=== PATIENT | female | born 2005 | race Two or more races ===

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

== ENCOUNTER 2025-01-13 18:56 | Emergency (ER) | payer BC ==
[~2025-01-13] VITALS: Ht 170.2 cm; Wt 100.0 kg
--- NOTE | 2025-01-13 19:22 | ED.PDOC ---
History of Present Illness HPI Comments 19 y/o obese F presents with nonradiating, lower abdominal pain. Patient reports on being 15x weeks , currently. Pain is similar to cramps but has been lasting all day following onset, this morning, and is worse in her LLQ area. She reports also taking Tylenol also, this morning, for a headache, which resolved prior to arrival. Endorses on having associated vaginal discharge as well. Patient informs on having established care, with last ultrasound showing advancing without complications 1.5 weeks ago. No recent travel, injuries, sick contact, spoiled food, or illicit substance use endorsed. She denies having any vaginal bleeding, nausea, vomiting, fever, chills, or further associated symptoms. Time Seen by MD: 19:15 Primary Care Provider: ASLAM Reviewed Notes: Nurses Notes, Medications, Allergies Allergies: Coded Allergies: NO KNOWN ALLERGIES (Unverified , 11/30/13) Home Meds Active Scripts Cefdinir (Cefdinir) 300 Mg Cap, 1 CAP PO BID for 7 Days, #14 CAP Prov:RENAN MONROE MD 01/13/25 Information Source: Patient Mode of Arrival: Ambulatory Severity: Moderate Timing: Hours Duration: Since onset Prehospital treatment: Pain Meds Past Medical History PAST MEDICAL HISTORY: Denies Surgical History: Denies all surgeries CLOTH BURLER History: No Pertinent CLOTH BURLER History Family History Family History: Unknown Social History Smoker: Non-Smoker Alcohol: Denies ETOH Use Drugs: Denies Drug Use Lives In: Home All Other Systems: Reviewed and Negative (Comprehensive systems review obtained and negative except for what is stated in the HPI.) Physical Exam General Appearance: No Apparent Distress, Obese HEENT: Normal ENT Inspection, Pharynx Normal, TMs Normal Neck: Full Range of Motion, Non-Tender, Normal, Normal Inspection Respiratory: Chest Non-Tender, Lungs Clear, No Accessory Muscle Use, No Respiratory Distress, Normal Breath Sounds Cardiovascular: No Edema, No JVD, No Murmur, No Gallop, Normal Peripheral Pulses, Regular Rate/Rhythm Breast Exam: Deferred Gastrointestinal: LLQ (tenderness), No Organomegaly, No Pulsatile Mass, Normal Bowel Sounds, Soft, Tenderness (LLQ) Genitalia: Deferred Pelvic: Deferred Rectal: Deferred Extremities: No calf tenderness, Normal capillary refill, Normal inspection, Normal range of motion, Non-tender, No pedal edema Musculoskeletal : Apperance: Normal Neurologic: Alert, luggage attendant II-XII nml as Tested, No Motor Deficits, Normal Affect, Normal Mood, No Sensory Deficits Cerebellar Function: Normal Reflexes: Normal Skin: Dry, Normal Color, Warm Lymphatic: No Adenopathy Was a procedure done? Was a procedure done?: No Differential Dx Considerations may include: threatened , diverticulitis, PID, UTI, among others X-Ray, Labs, Meds, VS Vital Signs Date Time Temp Pulse Resp B/P (MAP) Pulse Ox O2 Delivery O2 Flow Rate FiO2 01/13/25 20:18 89 18 97 Room Air 01/13/25 20:18 99.0 89 18 115/75 (88) 97 99.0 01/13/25 19:20 99.5 106 20 125/78 (94) 97 99.5 Lab Test 01/13/25 20:20 01/13/25 19:19 Range/Units White Blood Count 10.3 4.4-10.8 10^3/uL Red Blood Count 4.64 4.0-5.20 10^6/uL Hemoglobin 12.8 12.2-16.2 g/dL Hematocrit 38.0 36.0-46.0 % Mean Corpuscular Volume 81.8 80.0-100.0 fL Mean Corpuscular Hemoglobin 27.6 L 28.0-32.0 pg Mean Corpuscular Hemoglobin Concent 33.7 32.0-36.0 g/dL Red Cell Distribution Width 13.4 11.8-14.3 % Platelet Count 285 140-450 10^3/uL Mean Platelet Volume 7.5 6.9-10.8 fL Neutrophils (%) (Auto) 68.7 37.0-80.0 % Lymphocytes (%) (Auto) 21.6 10.0-50.0 % Monocytes (%) (Auto) 7.1 0.0-12.0 % Eosinophils (%) (Auto) 2.1 0.0-7.0 % Basophils (%) (Auto) 0.5 0.0-2.0 % Neutrophils # (Auto) 7.1 1.6-8.6 10 ^3/uL Lymphocytes # (Auto) 2.2 0.4-5.4 10 ^3/uL Monocytes # (Auto) 0.7 0-1.3 10 ^3/uL Eosinophils # (Auto) 0.2 0-0.8 10 ^3/uL Basophils # (Auto) 0 0-0.2 10 ^3/uL Nucleated Red Blood Cells 0.1 % Sodium Level 139 136-145 mmol/L Potassium Level 3.9 3.5-5.1 mmol/L Chloride Level 109 H 98-107 mmol/L Carbon Dioxide Level 22 20-31 mmol/L Anion Gap 8 5-15 Blood Urea Nitrogen 7 L 9-23 mg/dL Creatinine 0.51 L 0.550-1.02 mg/dL Glomerular Filtration Rate Calc 138 >90 mL/min BUN/Creatinine Ratio 13.7 10.0-20.0 Serum Glucose 88 74-106 mg/dL Calcium Level 9.8 8.7-10.4 mg/dL Beta HCG, Quantitative 48043.3 H 1.5-4.2 mIU/mL Urine Color Colorless Yellow Urine Clarity Turbid H Clear Urine pH 5.5 5.0-9.0 Urine Specific [place] 1.006 1.001-1.035 Urine Protein Negative Negative Urine Ketones Negative Negative Urine Blood Negative Negative /uL Urine Nitrite Negative Negative Urine Bilirubin Negative Negative Urine Urobilinogen Normal Negative mg/dL Urine Leukocyte Esterase 3+ Negative /uL Urine RBC 6 0 - 4 /hpf Urine Microscopic WBC 10 H 0-5 /HPF Urine Squamous Epithelial Cells Few <5 /hpf Urine Bacteria Few H None Seen /hpf Urine Glucose Normal Normal mg/dL Current Medications Medications (Trade) Dose Ordered Sig/Ruben Route Start Time Stop Time Status Last Admin Acetaminophen (Tylenol Tablet) 1,000 mg ONCE ONCE PO 01/13/25 19:15 01/13/25 19:17 DC 01/13/25 20:25 Cephalexin (Keflex Capsule) 500 mg ONCE ONCE PO 01/13/25 20:30 01/13/25 20:31 DC 01/13/25 20:33 [place] [id number] Ph: [phone] DIAGNOSTIC IMAGING Diagnostic Imaging Report : [id number] Signed PATIENT: LEEROY OVALLE ACCT: [id number] UNIT: [id number] : 2005 LOC: ER ROOM / BED: / AGE / SEX: 19 / F ADM STATUS: REG ER SERVICE 14 ORDERING PHYSICIAN: RENAN MONROE MD PROCEDURE(s): OBUS - OB ULTRASOUND COMP GTR 14 WKS REASON: LLQ pain, 15 wks ORDER NUMBER(s): [id number], ACCESSION NUMBER(s): [id number] EXAM: US OB ULTRASOUND COMP GTR 14 WKS CLINICAL HISTORY: LLQ pain, 15 wks TECHNIQUE: Real-time grayscale, color flow and M-mode imaging of the gravid uterus is performed. FINDINGS: The following measurements are obtained: BPD: 3.5 cm HC: 12.3 cm AC: 10.4 cm FL: 1.8 cm Estimated gestational age by ultrasound: 16 weeks 1 day. Estimated date of delivery: 06/29/2025 Estimated weight: 138 g heart rate: 162 beats per minute Amniotic fluid: Visually adequate Cervix: Measures approximately 3.9 cm in length and appears closed. Placenta: Anterior. The edges of the placenta appear to be rolled up. This can be seen with circumvallate placenta. No other evidence to suggest abruption or previa at this time. survey: position: Transverse, head left. Head: lateral ventricles: Visualized posterior fossa: Visualized spine: Visualized four chamber heart: Not well visualized diaphragm: Visualized stomach: Visualized kidneys: Visualized bladder: Visualized anterior abdominal wall/cord insertion site visualized three vessel cord: Visualized Right Of Way Worker reports good movement on real-time imaging. IMPRESSION: Single living intrauterine as above. Suggestion of circumvallate placenta. No definite evidence of abruption or previa at this time. Recommend continued follow-up as clinically indicated. ATED BY: ADEN WALL MD DICTATED DATE/TIME: 01/13/252136 SIGNED BY: ADEN WALL MD SIGNED DATE/TIME: 01/13/252136 CC: Time of 1ST Reevaluation: 19:45 Reevaluation 1ST: Unchanged Patient Education/Counseling: Diagnosis, Treatment, Need For Follow Up Family Education/Counseling: Diagnosis, Treatment, Need For Follow Up Departure 1 Departure Time of Disposition: 22:00 Impression: Primary Impression: ABDOMINAL PAIN Additional Impressions: 15 weeks gestation of Abdominal pain affecting UTI (urinary tract infection) Disposition: 01 HOME / SELF CARE / HOMELESS Condition: Stable e-Prescriptions Cefdinir (Cefdinir) 300 Mg Cap 1 CAP PO BID for 7 Days, #14 CAP Prov: RENAN MONROE MD 01/13/25 Discharged With: Self Critical Care Note Critical Care Time?: No Stability Stability form required: No Heart Score Heart Score: Heart Score Response (Comments) Value History N/A 0 EKG N/A 0 Age N/A 0 Risk Factors N/A 0 Troponin N/A 0 Total 0 I personally scribed for RENAN MONROE MD ([email or web address]) on 01/13/25 at 19:22. Electronically submitted by Eusebio Bunch ([email or web address]). I personally scribed for RENAN MONROE MD ([email or web address]) on 01/13/25 at 22:13. Electronically submitted by Eusebio Bunch ([email or web address]). RENAN MONROE MD Jan 13, 2025 19:22
[2025-01-13 19:56] LABS: Urine Bacteria FEW /hpf (None Seen); Urine Blood Negative /uL (Negative); Urine Clarity Turbid (Clear); Urine Color Colorless (Yellow); Urine Protein, UAD Negative (Negative); Urine Specific Gravity 1.006 (1.001-1.035); Urine Squamous Epithelial Cell FEW /hpf (<5); Urine Urobilinogen Normal (Negative); Urine WBC 10 /HPF (0-5); Urine pH 5.5 (5.0-9.0)
[2025-01-13 20:18] VITALS: BP 115/75; PULSE 89; RESP 18; TEMP 99; O2SAT 97
[2025-01-13] MEDS: ACETAMINOPHEN 325 MG TAB PO ONE (20:25)
[2025-01-13] MEDS: CEPHALEXIN 250 MG CAP PO ONE (20:33)
[2025-01-13 20:36] LABS: Basophils # (auto) 0 10 ^3/uL (0-0.2); Basophils % (auto) 0.5 % (0.0-2.0); Eosinophils # (auto) 0.2 10 ^3/uL (0-0.8); Eosinophils % (auto) 2.1 % (0.0-7.0); Hemoglobin 12.8 g/dL (12.2-16.2); Lymphocytes # (auto) 2.2 10 ^3/uL (0.4-5.4); Lymphocytes % (auto) 21.6 % (10.0-50.0); Mean Corpuscular Hemoglobin 27.6 pg (28.0-32.0); Mean Corpuscular Hgb Conc. 33.7 g/dL (32.0-36.0); Mean Corpuscular Volume 81.8 fL (80.0-100.0); Monocytes # (auto) 0.7 10 ^3/uL (0-1.3); Monocytes % (auto) 7.1 % (0.0-12.0); Neutrophils # (auto) 7.1 10 ^3/uL (1.6-8.6); Neutrophils % (auto) 68.7 % (37.0-80.0); Nucleated Red Blood Cells % 0.1 %; Platelet Count (auto) 285 10^3/uL (140-450); Red Blood Cells 4.64 10^6/uL (4.0-5.20); Red Cell Distribution Width 13.4 % (11.8-14.3); White Blood Cell 10.3 10^3/uL (4.4-10.8)
[2025-01-13 20:41] LABS: Potassium 3.9 mmol/L (3.5-5.1); Sodium 139 mmol/L (136-145)
[2025-01-13 20:42] LABS: Anion Gap 8 (5-15); Calcium 9.8 mg/dL (8.7-10.4); Carbon Dioxide 22 mmol/L (20-31)
[2025-01-13 20:47] LABS: BUN/Creatinine Ratio 13.7 (10.0-20.0); Glucose 88 mg/dL (74-106)
[2025-01-13 21:07] LABS: Blood Urea Nitrogen 7 mg/dL (9-23); Chloride 109 mmol/L (98-107)
--- NOTE | 2025-01-13 21:39 | DVH ---
EXAM: US OB ULTRASOUND COMP GTR 14 WKS CLINICAL HISTORY: LLQ pain, 15 wks TECHNIQUE: Real-time grayscale, color flow and M-mode imaging of the gravid uterus is performed. FINDINGS: The following measurements are obtained: BPD: 3.5 cm HC: 12.3 cm AC: 10.4 cm FL: 1.8 cm Estimated gestational age by ultrasound: 16 weeks 1 day. Estimated date of delivery: 06/29/2025 Estimated weight: 138 g heart rate: 162 beats per minute Amniotic fluid: Visually adequate Cervix: Measures approximately 3.9 cm in length and appears closed. Placenta: Anterior. The edges of the placenta appear to be rolled up. This can be seen with circumv allate placenta. No other evidence to suggest abruption or previa at this time. survey: position: Transverse, head left. Head: lateral ventricles: Visualized posterior fossa: Visualized spine: Visualized four chamber heart: Not well visualized diaphragm: Visualized stomach: Visualized kidneys: Visualized bladder: Visualized anterior abdominal wall/cord insertion site visualized three vessel cord: Visualized Cook Supervisor reports good movement on real-time imaging. IMPRESSION: Single living intrauterine as above. Suggestion of circumvallate placenta. No definite evidence of abruption or previa at this time. Recommend continued follow-up as clinically indicated.
[2025-01-13] MEDS ORDERED: CEFD300C2 PO (22:14)
== END 2025-01-13 23:12 | disposition home or self-care (01) ==
LOC: ER 18:56
DX: O23.42 Unspecified infection of urinary tract in pregnancy, second trimester (principal); O26.892 Other specified pregnancy related conditions, second trimester; N39.0 Urinary tract infection, site not specified; R10.30 Lower abdominal pain, unspecified; R10.2 Pelvic and perineal pain; Z3A.15 15 weeks gestation of pregnancy
CPT/HCPCS: 36415; 76805; 80048; 81001; 84702; 85025

== ENCOUNTER 2025-02-04 10:09 | Outpatient (CLI) | payer BC ==
[~2025-02-04 10:09] MED LIST: CEFD300C2 PO
[2025-02-05 08:07] LABS: HSV 1 IgG Antibody Non Reactive (Non Reactive); HSV 2 IgG Antibody Non Reactive (Non Reactive)
== END 2025-02-04 17:00 | disposition home or self-care (01) ==
LOC: LAB 10:09
PROVIDERS: ATTEND Registered Nurse
DX: Z11.3 Encounter for screening for infections with a predominantly sexual mode of transmission (principal)
CPT/HCPCS: 86695; 86696

== ENCOUNTER 2025-03-26 07:05 | Outpatient (CLI) | payer BC ==
[2025-03-26 07:40] LABS: Hematocrit 31.0 % (36.0-46.0); Hemoglobin 10.8 g/dL (12.2-16.2); Mean Corpuscular Hemoglobin 27.4 pg (28.0-32.0); Mean Corpuscular Volume 78.9 fL (80.0-100.0); Nucleated Red Blood Cells % 0.0 %
== END 2025-03-26 17:00 | disposition home or self-care (01) ==
LOC: LAB 07:05
PROVIDERS: ATTEND Obstetrics & Gynecology
DX: Z34.00 Encounter for supervision of normal first pregnancy, unspecified trimester (principal); Z3A.00 Weeks of gestation of pregnancy not specified
CPT/HCPCS: 36415; 82951; 83036; 85025

== ENCOUNTER 2025-03-30 13:31 | Observation (INO) | payer BC ==
[2025-03-30] MEDS ORDERED: PREN-96 PO (13:57)
--- NOTE | 2025-03-30 16:23 | DVHDS2 ---
Physician Discharge Progress N Final Diagnosis: False labor Commentary: Commentary NST appropriate NOT in labor Condition on Discharge: Stable Disposition: Home Discharge Instructions: Diet: Regular Activity: No Restrictions, As Tolerated Follow Up/Referral: Follow up with Dr. Santana as scheduled. Return to hospiital for any related concerns Medications: NA Follow Up Care: Discharge Statement: "Patient was advised to return to the ER or call 911 if any headaches, dizziness, shortness of breath, chest pain, abdominal pain, bleeding, fevers, or worsening of medical condition. Patient was counseled about treatment plan, medications, possible side effects, patientverbalized understanding. All questions were answered to the best of my ability. This discharge took greater then 30 minutes in planning, reviewing documentation, counseling the patient, and discussing with other team members." Visit Coding OBGYN Date of Service: Mar 30, 2025 Billing Provider: DONTE GALAN DO ATTRACTION WORKER Common Visit Codes: 93921-ESZ/OBS SAME DATE (MOD) ATTRACTION WORKER Procedure Codes: 62030-80- NON-STRESS TEST DONTE GALAN DO Mar 30, 2025 16:23
== END 2025-03-30 14:50 | disposition home or self-care (01) ==
LOC: LDRP 13:31
PROVIDERS: ADMIT Obstetrics & Gynecology; ATTEND Obstetrics & Gynecology
DX: O47.9 False labor, unspecified (principal); Z3A.26 26 weeks gestation of pregnancy; Z98.890 Other specified postprocedural states; Z79.899 Other long term (current) drug therapy
CPT/HCPCS: 59025; 81002; 94760; G0378

== ENCOUNTER → 2025-04-03 | Outpatient (CLI) | payer BC ==
[~2025-04-03] MED LIST changes: +PREN-96 PO
== END | disposition home or self-care (01) ==
LOC: LAB 09:14
PROVIDERS: ATTEND Registered Nurse
DX: N89.8 Other specified noninflammatory disorders of vagina (principal)
CPT/HCPCS: 87086

== ENCOUNTER 2025-04-07 22:40 | Observation (INO) | payer BC ==
[2025-04-07] MEDS ORDERED: MICO4CRE5 VA (22:57)
--- NOTE | 2025-04-07 23:06 | DVHDS2 ---
Physician Discharge Progress N Final Diagnosis: Vaginal Yeast Infection Operations or Procedures: Operations or Procedures S 20y/o patient IUP at 29.1 w presents to OB triage with complaints of monistat case specialist stuck within vagina. Patient reports being diagnosed with vaginal yeast infection at [facility] urgent care and was prescribed monistat 3 days, today was first day. Patient reports case specialist falling out in the bathroom prior to pelvic exam +FM, denies LOF, VB, UCs PNC with Dr. Santana, uncomplicated O VSS, see CPN SSE performed, no foreign objects visualized in vagina, white/ neon green [id number] discharge present +FHT via doppler A 20y/o patient IUP at 29.1 w Vaginal yeast infection P Discharge patient home New Rx for monistat 7 days [facility]KC, PTL precautions endorsed Follow up with Dr. Santana on 04/15/[address] Santana consulted, agrees with POC Condition on Discharge: Stable Disposition: Home Discharge Instructions: Diet: Regular Activity: No Restrictions, As Tolerated Follow Up/Referral: Follow up with Esther as scheduled on 04/15/25 Medications: See med list Follow Up Care: Specialist: Follow up with Dr. Santana on 04/15/25 as scheduled Discharge Statement: "Patient was advised to return to the ER or call 911 if any headaches, dizziness, shortness of breath, chest pain, abdominal pain, bleeding, fevers, or worsening of medical condition. Patient was counseled about treatment plan, medications, possible side effects, patientverbalized understanding. All questions were answered to the best of my ability. This discharge took greater then 30 minutes in planning, reviewing documentation, counseling the patient, and discussing with other team members." Visit Coding OBGYN Date of Service: Apr 07, 2025 Billing Provider: SYLVESTER FERRARA CNM GLUCOSE AND SYRUP WEIGHER Common Visit Codes: 14207-PHHGVOM OBS CARE (MOD) SYLVESTER FERRARA CNM Apr 07, 2025 23:06
== END 2025-04-07 23:21 | disposition home or self-care (01) ==
LOC: LDRP 22:40
PROVIDERS: ADMIT Obstetrics & Gynecology; ATTEND Obstetrics & Gynecology
DX: O98.813 Other maternal infectious and parasitic diseases complicating pregnancy, third trimester (principal); B37.31 Acute candidiasis of vulva and vagina; Z3A.29 29 weeks gestation of pregnancy; Z98.890 Other specified postprocedural states
CPT/HCPCS: 81002; 94760; G0378

== ENCOUNTER → 2025-06-03 | Outpatient (CLI) | payer BC ==
[~2025-06-03] MED LIST changes: -CEFD300C2 PO; +MICO4CRE5 VA
[2025-06-03 08:51] LABS: Hematocrit 30.6 % (36.0-46.0)
[2025-06-03 08:53] LABS: Hemoglobin 9.8 g/dL (12.2-16.2); Mean Corpuscular Hemoglobin 22.5 pg (28.0-32.0); Mean Corpuscular Volume 70.4 fL (80.0-100.0); Nucleated Red Blood Cells % 0.1 %
[2025-06-05 02:07] LABS: Chlamydia Trachomatis, NAA Negative (Negative); Neisseria gonorrhoeae, NAA Negative (Negative)
== END | disposition home or self-care (01) ==
LOC: LAB 08:33
PROVIDERS: ATTEND Obstetrics & Gynecology
DX: Z34.80 Encounter for supervision of other normal pregnancy, unspecified trimester (principal); Z11.3 Encounter for screening for infections with a predominantly sexual mode of transmission; Z72.51 High risk heterosexual behavior; Z3A.00 Weeks of gestation of pregnancy not specified
CPT/HCPCS: 36415; 85025; 86780

== ENCOUNTER 2025-06-08 19:51 | Observation (INO) | payer BC ==
[~2025-06-08] VITALS: Ht 170.2 cm; Wt 120.2 kg
--- NOTE | 2025-06-08 21:05 | DVH ---
ULTRASOUND BIOPHYSICAL PROFILE REASON FOR EXAM: Decreased movement. EGA 36 weeks 3 days. SALLY 07/03/2025. . FINDINGS: Two points each were awarded for the following: tone, breathing, movem ent and adequate amniotic fluid index. Biophysical profile score is 8 out of a possible 8. The amni otic fluid index is 13.4 cm. The fetus is in cephalic position and the placenta is anterior without e vidence of previa. heart rate 135 beats per minute. IMPRESSION: BIOPHYSICAL PROFILE SCORE OF 8.
[2025-06-08 21:38] LABS: Urine Budding Yeast MODERATE /hpf (None Seen); Urine Protein, UAD Negative (Negative)
[2025-06-08 21:43] LABS: Protein, Urine < 6.0 mg/dL (1-14)
[2025-06-08 22:04] LABS: Hemoglobin 9.4 g/dL (12.2-16.2)
[2025-06-08 22:07] LABS: Hematocrit 29.3 % (36.0-46.0); Mean Corpuscular Hemoglobin 22.3 pg (28.0-32.0); Mean Corpuscular Volume 69.5 fL (80.0-100.0); Nucleated Red Blood Cells % 0.1 %
[2025-06-08 22:19] LABS: INR 0.91 (0.9-1.15); Partial Thromboplastin Time 26.1 SEC (24.5-34.5); Prothrombin Time 9.7 sec (9.3-11.8)
[2025-06-08 22:23] LABS: Alanine Aminotransferase 12 U/L (7-40); Albumin 3.9 g/dL (3.2-4.8); Anion Gap 11 (5-15); BUN/Creatinine Ratio 10.4 (10.0-20.0); Calcium 9.1 mg/dL (8.7-10.4); Carbon Dioxide 21 mmol/L (20-31); Chloride 105 mmol/L (98-107); Glucose 91 mg/dL (74-106); Potassium 3.9 mmol/L (3.5-5.1); Sodium 137 mmol/L (136-145); Total Protein 7.2 g/dL (5.7-8.2)
[2025-06-08 22:29] LABS: Alkaline Phosphatase 173 U/L (46-116); Bilirubin, Total 0.3 mg/dL (0.2-1.0); Blood Urea Nitrogen 5 mg/dL (9-23); Uric Acid 2.3 mg/dL (3.1-7.8)
--- NOTE | 2025-06-09 05:27 | DVHDS2 ---
Discharge Summary Date of Admission Jun 08, 2025 at 19:51 Date of Discharge: Jun 08, 2025 Admitting Diagnosis Thirty-six week decreased movement Wounds: None Labs/Diagnostic Data: Laboratory Results Test 06/08/25 21:54 06/08/25 21:05 White Blood Count 15.4 10^3/uL (4.4-10.8) Red Blood Count 4.22 10^6/uL (4.0-5.20) Hemoglobin 9.4 g/dL (12.2-16.2) Hematocrit 29.3 % (36.0-46.0) Mean Corpuscular Volume 69.5 fL (80.0-100.0) Mean Corpuscular Hemoglobin 22.3 pg (28.0-32.0) Mean Corpuscular Hemoglobin Concent 32.0 g/dL (32.0-36.0) Red Cell Distribution Width 16.5 % (11.8-14.3) Platelet Count 237 10^3/uL (140-450) Mean Platelet Volume 7.8 fL (6.9-10.8) Neutrophils (%) (Auto) 75.8 % (37.0-80.0) Lymphocytes (%) (Auto) 16.3 % (10.0-50.0) Monocytes (%) (Auto) 6.5 % (0.0-12.0) Eosinophils (%) (Auto) 1.1 % (0.0-7.0) Basophils (%) (Auto) 0.3 % (0.0-2.0) Neutrophils # (Auto) 11.7 10 ^3/uL (1.6-8.6) Lymphocytes # (Auto) 2.5 10 ^3/uL (0.4-5.4) Monocytes # (Auto) 1.0 10 ^3/uL (0-1.3) Eosinophils # (Auto) 0.2 10 ^3/uL (0-0.8) Basophils # (Auto) 0.1 10 ^3/uL (0-0.2) Nucleated Red Blood Cells 0.1 % Prothrombin Time 9.7 sec (9.3-11.8) Prothrombin Time INR 0.91 (0.9-1.15) Activated Partial Thromboplast Time 26.1 SEC (24.5-34.5) Sodium Level 137 mmol/L (136-145) Potassium Level 3.9 mmol/L (3.5-5.1) Chloride Level 105 mmol/L (98-107) Carbon Dioxide Level 21 mmol/L (20-31) Anion Gap 11 (5-15) Blood Urea Nitrogen 5 mg/dL (9-23) Creatinine 0.48 mg/dL (0.550-1.02) Glomerular Filtration Rate Calc 139 mL/min (>90) BUN/Creatinine Ratio 10.4 (10.0-20.0) Serum Glucose 91 mg/dL (74-106) Uric Acid 2.3 mg/dL (3.1-7.8) Calcium Level 9.1 mg/dL (8.7-10.4) Total Bilirubin 0.3 mg/dL (0.2-1.0) Aspartate Amino Transferase (AST) 12 U/L (13-40) Alanine Aminotransferase (ALT) 12 U/L (7-40) Alkaline Phosphatase 173 U/L (46-116) Total Protein 7.2 g/dL (5.7-8.2) Albumin 3.9 g/dL (3.2-4.8) Urine Color Colorless (Yellow) Urine Clarity Turbid (Clear) Urine pH 6.0 (5.0-9.0) Urine Specific [place] 1.004 (1.001-1.035) Urine Protein Negative (Negative) Urine Ketones Negative (Negative) Urine Blood Negative /uL (Negative) Urine Nitrite Negative (Negative) Urine Bilirubin Negative (Negative) Urine Urobilinogen Normal mg/dL (Negative) Urine Leukocyte Esterase 3+ /uL (Negative) Urine RBC <1 /hpf (0 - 4) Urine Microscopic WBC 30 /HPF (0-5) Urine Squamous Epithelial Cells Mod /hpf (<5) Urine Bacteria Many /hpf (None Seen) Urine Yeast (Budding) Moderate /hpf (None Seen) Urine Creatinine 18.00 mg/dL (30.0-125.0) Urine Protein/Creatinine Ratio 0.33 Urine Glucose Normal mg/dL (Normal) Urine Total Protein < 6.0 mg/dL (1-14) Other Laboratory Tests 06/08/25 21:54 Brief Hx & Hospital Course: NST BPP both reassuring and performed Consults/Reason for consult None Operations or Procedures NST BPP Condition at Discharge: Good Final Diagnosis/Problems List 36 week reassuring heart tones and evaluation Discharge Disposition: Home Discharge Instruct/Medications Diet: Regular Activity: No Restrictions, As Tolerated Activity comment: Kick counts labor precautions Follow Up/Referral: Follow up as scheduled or p.r.n. Medications: No medications Scheduled Miconazole Nitrate Vaginal (Monistat 7 Simply Cure), 2 % VA HS Vit W/ Ferrous Fumara ( One Daily), 1 TAB PO DAILY, (Reported) Discharge Statement: "Patient was advised to return to the ER or call 911 if any headaches, dizziness, shortness of breath, chest pain, abdominal pain, bleeding, fevers, or worsening of medical condition. Patient was counseled about treatment plan, medications, possible side effects, patientverbalized understanding. All questions were answered to the best of my ability. This discharge took greater then 30 minutes in planning, reviewing documentation, counseling the patient, and discussing with other team members." ASSESSMENT ASSESSMENT Assessment Visit Coding OBGYN Date of Service: Jun 08, 2025 Billing Provider: KONG DAWN DO AUDIO VIDEO REPAIRER Common Visit Codes: 81951-VFY/OBS SAME DATE (MOD), 08365-BOV/OBS SAME DATE (HIGH) AUDIO VIDEO REPAIRER Procedure Codes: 39615-11- NON-STRESS TEST KONG DAWN DO Jun 09, 2025 05:27
== END 2025-06-08 23:14 | disposition home or self-care (01) ==
LOC: LDRP 19:51
PROVIDERS: ADMIT Obstetrics & Gynecology; ATTEND Obstetrics & Gynecology
DX: O36.8130 Decreased fetal movements, third trimester, not applicable or unspecified (principal); R79.1 Abnormal coagulation profile; Z3A.36 36 weeks gestation of pregnancy; Z98.890 Other specified postprocedural states; Z79.899 Other long term (current) drug therapy
CPT/HCPCS: 36415; 76818; 80053; 81001; 81002; 82570; 84156; 84550; 85025; 85610; 85730; 94760; G0378; 59025; 76819

== ENCOUNTER 2025-06-10 08:34 | Observation (INO) | payer BC ==
[~2025-06-10] VITALS: Ht 172.7 cm; Wt 99.8 kg
--- NOTE | 2025-06-10 15:29 | DVH ---
BIOPHYSICAL PROFILE HISTORY: PIH TECHNIQUE: Multiple transabdominal real-time grayscale sonographic images through the gravid uterus of the fetus with duplex Doppler color flow and M-mode spectral analysis FINDINGS: BIOPHYSICAL PROFILE: breathing score: 2 movement score: 2 tone score: 2 Quantitative MYRIAM score: 2 (MYRIAM: 15.8 Cm MVP: 6.0 cm.) Total score: 8/8 The cervix obscured by head Single live fetus in cephalic presentation. heart rate 148 beats per minute. Anterior Grade 2 placenta without previa or abruption Single live fetus at 36 weeks 5 days Biophysical profile score 8/8 corresponding to an SALLY of 07/03/2025 IMPRESSION: 1. Biophysical profile score: 8/8
[2025-06-10 15:42] LABS: Urine Protein, UAD TRACE (Negative)
[2025-06-10 15:59] LABS: Protein, Urine 26.0 mg/dL (1-14)
[2025-06-10 16:21] LABS: 24 Hr. Total Protein, Urine 179.99970 mg/24 Hr (<149.1); Protein, Urine < 6.0 mg/dL (1-14); Urine Total Volume, 24 Hours 3000 mL
== END 2025-06-10 15:49 | disposition home or self-care (01) ==
LOC: UNDOADMOB 14:00 → LDRP 14:00
PROVIDERS: ADMIT Obstetrics & Gynecology; ATTEND Obstetrics & Gynecology
DX: O13.3 Gestational [pregnancy-induced] hypertension without significant proteinuria, third trimester (principal); Z3A.36 36 weeks gestation of pregnancy; Z98.890 Other specified postprocedural states
CPT/HCPCS: 76818; 81001; 81002; 82570; 84156; G0378; 59025; 76819

== ENCOUNTER 2025-06-16 06:32 | Observation (INO) | payer BC ==
--- NOTE | 2025-06-16 10:11 | DVH ---
BIOPHYSICAL PROFILE HISTORY: PIH TECHNIQUE: Multiple transabdominal real-time grayscale sonographic images through the gravid uterus of the fetus with duplex Doppler color flow and M-mode spectral analysis FINDINGS: BIOPHYSICAL PROFILE: breathing score: 2 movement score: 2 tone score: 2 Quantitative MYRIAM score: 2 (MYRIAM: 13.6 Cm.) Total score: 8 The cervix not well visualized. Single live fetus in cephalic presentation. heart rate 163 beats per minute. Anterior placenta without previa or abruption IMPRESSION: Biophysical profile score: 8
--- NOTE | 2025-06-17 15:56 | DVHDS2 ---
Physician Discharge Progress N Final Diagnosis: pih 37wks Operations or Procedures: Operations or Procedures nst reactive reviwed,sono Condition on Discharge: Good Disposition: Home Discharge Instructions: Diet: Regular Activity: No Restrictions, As Tolerated Medications: na Follow Up Care: Specialist: 2d Discharge Statement: "Patient was advised to return to the ER or call 911 if any headaches, dizziness, shortness of breath, chest pain, abdominal pain, bleeding, fevers, or worsening of medical condition. Patient was counseled about treatment plan, medications, possible side effects, patientverbalized understanding. All questions were answered to the best of my ability. This discharge took greater then 30 minutes in planning, reviewing documentat ion, counseling the patient, and discussing with other team members." Visit Coding OBGYN Date of Service: Jun 17, 2025 Billing Provider: BHARATHI HATCH DO TRANSACTIONAL [place] Common Visit Codes: 26130-YKOUABL OBS CARE (HIGH) TRANSACTIONAL [place]GAL Procedure Codes: 52484-85- NON-STRESS TEST BHARATHI HATCH DO Jun 17, 2025 15:56
== END 2025-06-16 10:29 | disposition home or self-care (01) ==
LOC: UNDOADMOB 09:03 → LDRP 09:03 → UNDODISOB 10:29
PROVIDERS: ADMIT Obstetrics & Gynecology; ATTEND Obstetrics & Gynecology
DX: O13.3 Gestational [pregnancy-induced] hypertension without significant proteinuria, third trimester (principal); Z3A.37 37 weeks gestation of pregnancy; Z98.890 Other specified postprocedural states
CPT/HCPCS: 76818; 81002; G0378; 59025; 76819

== ENCOUNTER 2025-06-23 05:57 | Observation (INO) | payer BC, MEDICAID ==
--- NOTE | 2025-06-23 09:42 | DVH ---
BIOPHYSICAL PROFILE HISTORY: r/o pih TECHNIQUE: Multiple transabdominal real-time grayscale sonographic images through the gravid uterus of the fetus with duplex Doppler color flow and M-mode spectral analysis FINDINGS: BIOPHYSICAL PROFILE: breathing score: 2 movement score: 2 tone score: 2 Quantitative MYRIAM score: 2 (MYRIAM: 20.6 Cm.) Total score: 8 The cervix not well visualized. Single live fetus in cephalic presentation. heart rate 132 beats per minute. Grade 2 anterior placenta without previa or abruption IMPRESSION: Biophysical profile score: 8
[2025-06-23 09:59] LABS: Hematocrit 30.5 % (36.0-46.0); Hemoglobin 9.7 g/dL (12.2-16.2); Mean Corpuscular Hemoglobin 21.4 pg (28.0-32.0); Mean Corpuscular Volume 67.4 fL (80.0-100.0); Nucleated Red Blood Cells % 0.1 %
[2025-06-23 10:03] LABS: Urine Protein, UAD 1+ (Negative)
[2025-06-23 10:14] LABS: Protein, Urine 32.9 mg/dL (1-14)
[2025-06-23 10:15] LABS: INR 0.93 (0.9-1.15); Partial Thromboplastin Time 27.1 SEC (24.5-34.5); Prothrombin Time 9.9 sec (9.3-11.8)
[2025-06-23 10:19] LABS: Alanine Aminotransferase 10 U/L (7-40); Albumin 4.0 g/dL (3.2-4.8); Anion Gap 14 (5-15); BUN/Creatinine Ratio 13.7 (10.0-20.0); Bilirubin, Total 0.3 mg/dL (0.2-1.0); Calcium 8.8 mg/dL (8.7-10.4); Carbon Dioxide 21 mmol/L (20-31); Chloride 104 mmol/L (98-107); Potassium 3.7 mmol/L (3.5-5.1); Sodium 139 mmol/L (136-145); Total Protein 7.2 g/dL (5.7-8.2)
[2025-06-23 10:22] LABS: Alkaline Phosphatase 199 U/L (46-116); Blood Urea Nitrogen 7 mg/dL (9-23); Glucose 73 mg/dL (74-106); Uric Acid 2.9 mg/dL (3.1-7.8)
--- NOTE | 2025-06-23 10:58 | DVHDS2 ---
Physician Discharge Progress N Final Diagnosis: testing for BP monitoring ruled out preeclampsia Operations or Procedures: Operations or Procedures 20yo IUP@38.4wks, +FM, denies UCs/LOF/VB/HOWARD/vision changes/RUQ pain. VSS, normotensive per RN (see CPN) NST reactive per RN FKC/PreE/Labor precautions reviewed Dr. Santana consulted, agrees with POC. Laboratory Tests Test 06/23/25 09:34 Range/Units White Blood Count 11.6 H 4.4-10.8 10^3/uL Red Blood Count 4.53 4.0-5.20 10^6/uL Hemoglobin 9.7 L 12.2-16.2 g/dL Hematocrit 30.5 L 36.0-46.0 % Mean Corpuscular Volume 67.4 L 80.0-100.0 fL Mean Corpuscular Hemoglobin 21.4 L 28.0-32.0 pg Mean Corpuscular Hemoglobin Concent 31.7 L 32.0-36.0 g/dL Red Cell Distribution Width 17.2 H 11.8-14.3 % Platelet Count 315 140-450 10^3/uL Mean Platelet Volume 7.4 6.9-10.8 fL Neutrophils (%) (Auto) 77.1 37.0-80.0 % Lymphocytes (%) (Auto) 13.8 10.0-50.0 % Monocytes (%) (Auto) 7.9 0.0-12.0 % Eosinophils (%) (Auto) 1.0 0.0-7.0 % Basophils (%) (Auto) 0.2 0.0-2.0 % Neutrophils # (Auto) 8.9 H 1.6-8.6 10 ^3/uL Lymphocytes # (Auto) 1.6 0.4-5.4 10 ^3/uL Monocytes # (Auto) 0.9 0-1.3 10 ^3/uL Eosinophils # (Auto) 0.1 0-0.8 10 ^3/uL Basophils # (Auto) 0 0-0.2 10 ^3/uL Nucleated Red Blood Cells 0.1 % Prothrombin Time 9.9 9.3-11.8 sec Prothrombin Time INR 0.93 0.9-1.15 Activated Partial Thromboplast Time 27.1 24.5-34.5 SEC Urine Color Yellow Yellow Urine Clarity Turbid H Clear Urine pH 6.0 5.0-9.0 Urine Specific [place] 1.028 1.001-1.035 Urine Protein 1+ H Negative Urine Ketones Negative Negative Urine Blood Negative Negative /uL Urine Nitrite Negative Negative Urine Bilirubin Negative Negative Urine Urobilinogen Normal Negative mg/dL Urine Leukocyte Esterase Trace Negative /uL Urine RBC 1 0 - 4 /hpf Urine Microscopic WBC 2 0-5 /HPF Urine Squamous Epithelial Cells Mod <5 /hpf Urine Bacteria Few H None Seen /hpf Urine Mucus Few None Seen Urine Creatinine 237.33 H 30.0-125.0 mg/dL Urine Protein/Creatinine Ratio 0.14 Urine Glucose Trace Normal mg/dL Urine Total Protein 32.9 H 1-14 mg/dL Sodium Level 139 136-145 mmol/L Potassium Level 3.7 3.5-5.1 mmol/L Chloride Level 104 98-107 mmol/L Carbon Dioxide Level 21 20-31 mmol/L Anion Gap 14 5-15 Blood Urea Nitrogen 7 L 9-23 mg/dL Creatinine 0.51 L 0.550-1.02 mg/dL Glomerular Filtration Rate Calc 137 >90 mL/min BUN/Creatinine Ratio 13.7 10.0-20.0 Serum Glucose 73 L 74-106 mg/dL Uric Acid 2.9 L 3.1-7.8 mg/dL Calcium Level 8.8 8.7-10.4 mg/dL Total Bilirubin 0.3 0.2-1.0 mg/dL Aspartate Amino Transferase (AST) 16 13-40 U/L Alanine Aminotransferase (ALT) 10 7-40 U/L Alkaline Phosphatase 199 H 46-116 U/L Total Protein 7.2 5.7-8.2 g/dL Albumin 4.0 3.2-4.8 g/dL Other Interventions Other Interventions [place] [address] Ph: [phone] DIAGNOSTIC IMAGING Diagnostic Imaging Report : [id number] Signed PATIENT: PRAMOD OVALLECT: [id number] UNIT: [id number] : 2005 LOC: [facility] ROOM / BED: TRIAGE2 / A AGE / SEX: 20 / F ADM STATUS: ADM IN SERVICE [id number] ORDERING PHYSICIAN: SYLVESTER FERRARA CNM PROCEDURE(s): BPP - BIOPHYSICAL PROFILE REASON: r/o pih ORDER NUMBER(s): [id number], ACCESSION NUMBER(s): [id number] BIOPHYSICAL PROFILE HISTORY: r/o pih TECHNIQUE: Multiple transabdominal real-time grayscale sonographic images through the gravid uterus of the fetus with duplex Doppler color flow and M-mode spectral analysis FINDINGS: BIOPHYSICAL PROFILE: breathing score: 2 movement score: 2 tone score: 2 Quantitative MYRIAM score: 2 (MYRIAM: 20.6 Cm.) Total score: 8 The cervix not well visualized. Single live fetus in cephalic presentation. heart rate 132 beats per minute. Grade 2 anterior placenta without previa or abruption IMPRESSION: Biophysical profile score: 8 ATED BY: EMORY SIDDIQUI MD DICTATED DATE/TIME: 06/23/25939 SIGNED BY: EMORY SIDDIQUI MD SIGNED DATE/TIME: 06/23/25939 CC: Condition on Discharge: Stable Disposition: Home Discharge Instructions: Diet: Regular Activity: No Restrictions, As Tolerated Medications: see med list Follow Up Care: Specialist: f/u in 1wk Discharge Statement: "Patient was advised to return to the ER or call 911 if any headaches, dizziness, shortness of breath, chest pain, abdominal pain, bleeding, fevers, or worsening of medical condition. Patient was counseled about treatment plan, medications, possible side effects, patientverbalized understanding. All questions were answered to the best of my ability. This discharge took greater then 30 minutes in planning, reviewing documentation, counseling the patient, and discussing with other team members." Visit Coding OBGYN Date of Service: Jun 23, 2025 Billing Provider: SYLVESTER FERRARA CNM SURFACE HYDROLOGIST Common Visit Codes: 47351-FXLPADO OBS CARE (HIGH) SURFACE HYDROLOGIST Procedure Codes: 43606-61- NON-STRESS TEST SYLVESTER FERRARA CNM Jun 23, 2025 10:58
== END 2025-06-23 10:58 | disposition home or self-care (01) ==
LOC: LDRP 08:57 → UNDOADMOB 08:57 → LDRP 09:14 → UNDODISOB 10:58
PROVIDERS: ADMIT Obstetrics & Gynecology; ATTEND Obstetrics & Gynecology
DX: Z36.89 Encounter for other specified antenatal screening (principal); R79.1 Abnormal coagulation profile; Z3A.38 38 weeks gestation of pregnancy; Z98.890 Other specified postprocedural states
CPT/HCPCS: 36415; 76818; 80053; 81001; 81002; 82570; 84156; 84550; 85025; 85610; 85730; 94760; G0378; 59025; 76819

== ENCOUNTER 2025-06-26 20:55 | Inpatient (IN) | payer BC, MEDICAID ==
[~2025-06-26] VITALS: Ht 170.2 cm; Wt 122.5 kg
[2025-06-26] MEDS ORDERED: LIDOCAINE 2%HCL (LOCAL ANESTH.) INJ 20ML MDV IJ PRN (21:30)
[2025-06-26] MEDS ORDERED: NALBUPHINE HCL 10 MG/1ml INJECTION IV PRN (21:30)
[2025-06-26] MEDS: LACT. RINGERS/OXYTOCIN 20UNITS 500 ML IV ONE (22:00)
[2025-06-26] MEDS: LACTATED RINGER'S 1,000 ML IV SCH (22:25)
[2025-06-26] MEDS: ONDANSETRON HCL 4 MG/2 ML VIAL IV PRN (22:54)
[2025-06-26 23:07] LABS: Hematocrit 28.1 % (36.0-46.0); Hemoglobin 8.7 g/dL (12.2-16.2); Mean Corpuscular Hemoglobin 20.8 pg (28.0-32.0); Mean Corpuscular Volume 67.1 fL (80.0-100.0); Nucleated Red Blood Cells % 0.1 %
[2025-06-26] MEDS: DERMOPLAST 60ML BOTTLE TOP PRN (23:16)
[2025-06-26] MEDS: PHISODERM TOP SOLN 240ML BTL TOP PRN (23:16)
[2025-06-26] MEDS: WITCH HAZEL-GLYCERIN PAD TOP PRN (23:16)
[2025-06-26 23:25] LABS: INR 0.92 (0.9-1.15); Partial Thromboplastin Time 27.3 SEC (24.5-34.5); Prothrombin Time 9.8 sec (9.3-11.8)
[2025-06-26 23:29] LABS: Alanine Aminotransferase 13 U/L (7-40); Albumin 3.7 g/dL (3.2-4.8); Anion Gap 11 (5-15); BUN/Creatinine Ratio 13.3 (10.0-20.0); Carbon Dioxide 22 mmol/L (20-31); Chloride 107 mmol/L (98-107); Sodium 140 mmol/L (136-145); Total Protein 6.6 g/dL (5.7-8.2)
[2025-06-26 23:30] LABS: Alkaline Phosphatase 181 U/L (46-116); Bilirubin, Total 0.2 mg/dL (0.2-1.0); Blood Urea Nitrogen 8 mg/dL (9-23); Calcium 8.7 mg/dL (8.7-10.4); Glucose 70 mg/dL (74-106); Potassium 3.5 mmol/L (3.5-5.1)
[2025-06-26 23:36] LABS: Urine Protein, UAD Negative (Negative)
[2025-06-26 23:43] LABS: Protein, Urine 10.0 mg/dL (1-14)
[2025-06-26 23:45] LABS: Amphetamine Screen, Urine Neg (NEGATIVE); Barbiturate Scree,Urine Neg (NEGATIVE)
[2025-06-26 23:49] LABS: Benzodiazephine Screen, Urine Neg (NEGATIVE); Cocaine Screen, Urine Neg (NEGATIVE); Opiate Scree,Urine Neg (NEGATIVE); Phencyclidine Screen, Urine Neg (NEGATIVE)
[2025-06-26 23:50] LABS: Cannabinoid Screen, Urine Neg (NEGATIVE)
--- NOTE | 2025-06-26 23:58 | DVHHP2 ---
OB CC & HPI Date Date of Admission: Jun 26, 2025 Patient Identification: : 1 Para: 0 EDC: Jul 03, 2025 Chief Complaints: Reason for admission: induction of labor Indication for induction: medical complication Other reason for admission: Induction of labor for gestational hypertension in Admission Nurse Assessment Rev: Yes History of Present Complaints L&D Admission Note 06/26/2025 @ 2300 20 y/o (0,0,0,0) @39w0d IUP presents to the Place for scheduled IOL for GHTN Reports Normal movements. No leakage of fluid or vaginal bleeding. Received care with Dr Santana LMP: EDC: 07/03/[address] Santana labs Blood type: A Positive GBS : Negative RPR: Non Reactive HIV: Pending TDAP Given : 04/06/25 - complicated by GHTN towards the end of the EFW: 3856 grams Past History OB: G#1 current Plastic Tile Setter: Denies PMH: Denies PSH: Bone Fusion of the neck 2016 Medications: PNV, FeSO4 Social Hist: Denies Objective PE:A&O x3, Well groomed Afebrile, VSS Heart & Lungs: Normal sound Abdomen: Gravid non- tender, fundal ht: Cephalic presentation by 06/23/15 ultrasound SVE : Closed/ Thick/ high Past Medical History Cardiac: No pertinent Hx Pulmonary: No pertinent Hx Central Nervous System: No pertinent Hx GI: No pertinent Hx Hemotology/Oncology: No pertinent Hx Hepatobiliary: No pertinent Hx Psychiatric: No pertinent Hx Musculoskeletal: No pertinent Hx Rheumotologic: No pertinent Hx Infectious Disease: No peritnent Hx ENT: No pertinent Hx Renal/: No pertinent Hx Endocrine: No pertinent Hx Dermatology: No pertinent Hx Past Surgical History: Other Others Bone fusion of cervical neck 2016 OB History OB History Care: Good Care Ultrasounds: Normal mid trimester US Obstetrical Complications: Gestational Hypertension Medical Complications: None Allergies: Coded Allergies: NO KNOWN ALLERGIES (Unverified , 11/30/13) Home Meds Active Scripts Miconazole Nitrate Vaginal (Monistat 7 Simply Cure) 2 % Cre, 2 % VA HS for 7 Days, #1 CRE Prov:SYLVESTER FERRARA CNM 04/07/25 Reported Medications Vit W/ Ferrous Fumara ( One Daily) Daily Tab, 1 TAB PO DAILY, #90 TAB 3 Refills 03/30/25 Current Medications Current Medications Medications (Trade) Dose Ordered Sig/Ruben Route PRN Reason Start Time Stop Time Status Last Admin Lactated Ringer's 1,000 ml @ 125 mls/hr Q8H IV 06/26/25 21:30 06/26/25 23:16 Nalbuphine HCl (Nubain) 10 mg Q4HP PRN IV MODERATE PAIN (4-6 PAIN SCALE) 06/26/25 21:30 Witch Miranda (Tucks) 1 pad PRN PRN TOP PERINEAL AREA DISCOMFORT 06/26/25 21:30 06/26/25 23:16 Sodium Lauryl Sulfate (Phisoderm) 240 ml PRN PRN TOP PERINEAL AREA DISCOMFORT 06/26/25 21:30 06/26/25 23:16 Benzocaine (Dermoplast) 1 applic PRN PRN TOP PERINEAL AREA DISCOMFORT 06/26/25 21:30 06/26/25 23:16 Lidocaine HCl (Xylocaine) 40 ml ONCE PRN IJ PERINEAL AREA DISCOMFORT 06/26/25 21:30 Ondansetron HCl (Zofran) 4 mg Q6HPRN PRN IV NAUSEA / VOMITING 06/26/25 22:45 06/26/25 22:54 Family & Social History Family/Social History Blood Type: A+ Rubella: immune RPR/VDRL: Negative GBS Status: Negative HBsAG: Negative Review of Systems Constitutional: No symptom reported Ears, Nose, & Throat: No symptom reported Eyes: No symptom reported Pulmonary/Respiratory: No symptom reported Cardiovascular: No symptom reported Gastrointestinal: No symptom reported Genitourinary: No symptom reported Musculoskeletal: No symptom reported Skin: No symptom reported Psychiatric: No symptom reported Endocrine: No symptom reported Hemotologic/Lymphatic: No symptom reported OB Admission Exam Physical Exam Heart: Rhythm Normal Lungs: Clear Abdomen: Gravid Extremities: Normal Reflexes: Normal Pelvic Exam: Closed/ thick / high Cervical Dilatation: None Membranes: Intact Heart Rate: 140's Accelerations: Accelerations Present Decelerations: No Decelerations Short Term Variability: Present Group Home Variability: Average (6-25) Contractions on Admission: None OB Plan Plan Admitting Diagnosis: Induction of Labor Plan: Induction Induction Methd: Misoprostol protocol Other Plan: Assessment 20yo (0,0,0,0) 39w0d IUP by SNLMP Induction of labor for GHTN FHR baseline 145 bpm, mod variability , Accelerations present, no deceleration; Category 1 tracing Contractions : Uterine irritability noted Plan Induction of labor for GHTN / EFW 3856 grams Misoprostol 50 ,cg oral per protocol for Induction agent IVF hydration Regular diet in latent labor May monitor two hours post misoprostol and ambulate with Cat 1 tracing per protocol Plan of care discussed with Patient and family Process, Risks, benefits, of available management options discussed, including starting with expectant management, augmentation if indicated, Internal monitoring of UCs & FHT, AROM, amnioinfusion etc only when indicated Patient agrees to starting with Misoprostol Informed Consent obtained Consent for possible blood transfusion obtained. All questions answered. Admit to Place for Labor / IOL Routine L&D Admission orders EFM per policy Encourage ambulation and/exercises / frequent position change to facilitate labor & descent Supportive care Anticipate Visit Coding OBGYN Date of Service: Jun 26, 2025 Billing Provider: LEXUS BOWLING CNM DRIVER'S LICENSE REVIEWING OFFICER Common Visit Codes: [id number] OBS CARE (HIGH) LEXUS BOWLINGMNov 2024 23:58
[2025-06-28] VITALS (14 sets, daily range): BP systolic 116–134; BP diastolic 57–78; PULSE 76–102; RESP 16–20; TEMP 97.6–98.7; O2SAT 93–99
--- NOTE | 2025-06-28 07:31 | DVHOP2 ---
Operative Report - 2 Report Details Date: 06/28/25 Preop Diagnosis: A 9+ weeks hypertension failed to Rhine progress macrosomia Postop Diagnosis: 39+ weeks for to progress gestational hypertension macrosomia Surgeon: Prema Dawn Defect Repairer Glassware: Martínez silva Anesthesiologist: TANIA Anesthesia: Regional Drains: Jones catheter Implant: None Consent: The patient was informed of the risks and benefits of the procedure. These include but are not limited to complications of anesthesia, postoperative infection, incomplete relief of symptoms, recurrence of symptoms, damage to blood vessels, nerves and tendons, deep venous thrombosis, pulmonary embolism and possible need for repeat surgery in the future. Complications: None Estimated Blood Loss: 650 cc Fluids: See anesthesia log Findings: vigorous trying cry and tone clear amniotic fluid male Apgars 8/9 ; 9 lb 3 oz Indications for Surgery: Failed to progress failed induction gestational hypertension macrosomia Name of Procedure Performed Low transverse Procedure Details Procedure Details: Patient taken the operating room placed in left lateral tilt prepped and draped sterile fashion to son to have adequate analgesia and low-transverse incision made with a knife down to the rectus fascia nicked in midline carried laterally rectus muscle midline peritoneum identified and entered with sharp dissection vesicouterine peritoneum taken off lower uterine segment and low uterine transverse incision was made with scalpel down the current membranes which were ruptured with a hemostat amniotic fluid clear we then placed a uterine lower uterine segment and head essentially delivered spontaneously nose and mouth bulb suctioned shoulders and torso delivered without difficulty 60 seconds cord delay clamp was performed and infant handed off to awaiting respiratory team with vigorous cry and tone. This point umbilical blood sample was taken placenta removed uterus exteriorized cleared of all clots and debris and closed with double layer 2-0 Vicryl copiously irrigated closed the cul-de-sac and gutters of all clots and debris instrument lap sponge count correct x1 peritoneum then closed with a running continuous of 2-0 Vicryl rectus fascia then closed with a 0 PDS running continuous Camper's Mark's fascia approximated with chromic and then the subcuticular of 3 0 Prolene was used subcu as low as well as Steri-Strips benzoin ABD pad placed with a pressure dressing patient was then frog-leg view in the vagina and lower uterine segments cleared of all clots and debris uterus firm. Patient and transferred to recovery as well as the nursery. Specimen: Placenta Condition Good Disposition PACU DAWN,KONG R DO Jun 28, 2025 07:31
--- NOTE | 2025-06-28 07:43 | DVHPN2 ---
Chief Complaints Patient reports: No new complaints, Feels better Nursing reports: No new complaints, Other (Patient has had essentially no progression after multiple Cervidil was given to the point where she could no longer tolerate more induction secondary to hyper stem are multiple contractions. She has had no progress for over 12 hours she is requesting section for failure to progress or failed induction. She has history of macrosomia and hypertension. Given these variables I think it is a reasonable option for her. We discussed the risks benefits complications and alternatives not limited to in the future and the risks associated with the scheduled versus . We also discussed infection bleeding anesthesia acute chronic pain damage to adjacent organs transfusion hep B HIV transfusion reaction my stroke spinal these risks patient wants to proceed her mother's registered nurse would I have known for decades. She was in the room as I consented her all questions were answered and encouraged.) Objective Comment Cervical exam she is 1 cm thick General: Normal ENT: Normal Neck: Normal Lungs: Normal Cardiovascular: Normal Abdominal: Other (Gravid jeannette's 8+ lb) Musculoskeletal: Normal Extremities: Normal Skin: Normal Neurological: Normal Studies Laboratory Tests 06/26/25 22:14 Test 06/26/25 22:14 Range/Units Serum Glucose 70 L 74-106 mg/dL Ass/Plan Assessment 39+ weeks, macrosomia, hypertension desires elective section secondary to failure to progress in her comorbidities. Plan Primary low transverse -section or notified. KONG DAWN DO Jun 28, 2025 07:43
[2025-06-28] MEDS: LACT. RINGERS/OXYTOCIN 20UNITS 1,000 ML IV SCH (07:45)
[2025-06-28] MEDS ORDERED: ceFAZolin 1GM/50ML 50 ML IV SCH (07:45)
[2025-06-28] MEDS: LACTATED RINGER'S 1,000 ML IV SCH (07:45)
[2025-06-28] MEDS ORDERED: MORPHINE SULFATE 4 MG/ML SYR/VIAL IV PRN (07:45)
[2025-06-28] MEDS: ceFAZolin 2 GM/D5W50ml 50 ML IV ONE (08:17)
[2025-06-28] MEDS ORDERED: BUPIVACAINE/DEXTROSE MPF 0.75% 2 ML AMP IT ONE (08:20)
[2025-06-28] MEDS ORDERED: ONDANSETRON HCL 4 MG/2 ML VIAL ONE (08:20)
[2025-06-28] MEDS ORDERED: MORPHINE SULF PF 5 MG/10 ML VIAL ONE (08:21)
[2025-06-28] MEDS ORDERED: KETOROLAC TROMETH 30 MG/ML 1ML VIAL ONE (08:21)
[2025-06-28] MEDS ORDERED: fentaNYL CITRATE 100 MCG/2 ML VL ONE (08:21)
[2025-06-28] MEDS ORDERED: ceFAZolin 1GM VL ONE (08:33)
[2025-06-28] MEDS ORDERED: SODIUM CHLORIDE LOCK 10 ML ONE (08:46)
[2025-06-28] MEDS ORDERED: PHENYLEPHRINE HCL 10 MG/ML VL ONE (08:46)
[2025-06-28] MEDS: NALBUPHINE HCL 10 MG/1ml INJECTION IV ONE (09:45)
[2025-06-28] MEDS ORDERED: HYDROmorphone HCL 2 MG/ML VL/or syr IV PRN (09:45)
[2025-06-28] MEDS ORDERED: NALOXONE HCL 0.4 MG/ML VIAL IV PRN (09:45)
[2025-06-28] MEDS ORDERED: ONDANSETRON HCL 4 MG/2 ML VIAL IV PRN (09:45)
[2025-06-28] MEDS: diphenhydrAMINE HCL 50 MG/1 ML VL IV PRN (11:03)
[2025-06-28] MEDS ORDERED: ACETAMINOPHEN IV 1000 MG/100ML (10MG/ML) IV PRN (12:45)
[2025-06-28] MEDS: ACETAMINOPHEN IV 1000 MG/100ML (10MG/ML) IV PRN (13:10)
[2025-06-28] MEDS: ceFAZolin 1GM/50ML 50 ML IV SCH (16:16)
[2025-06-28] MEDS: KETOROLAC TROMETH 30 MG/ML 1ML VIAL IV PRN (22:15)
[2025-06-29] VITALS (11 sets, daily range): BP systolic 112–141; BP diastolic 51–83; PULSE 84–100; RESP 15–18; TEMP 97.9–98.9; O2SAT 95–99
--- NOTE | 2025-06-29 05:12 | DVHPN2 ---
Chief Complaints Patient reports: No new complaints, Feels better Nursing reports: No new complaints, Other (Postop day 1 section stable improved ambulating tolerating diet minimal lochia patient denies headache visual changes shortness of breath cough chest pain and/or Bhavna calf pain.) Objective Vitals Vital Signs Date Time Temp Pulse Resp B/P (MAP) Pulse Ox O2 Delivery O2 Flow Rate FiO2 06/29/25 04:00 90 18 96 06/29/25 03:00 98.4 129/58 (81) 98.4 06/28/25 19:00 Room Air Medications Current Medications Medications (Trade) Dose Ordered Sig/Ruben Route PRN Reason Start Time Stop Time Status Last Admin Acetaminophen (Ofirmev) 1,000 mg [id number] PRN IV PAIN SCALE 1-3 OR TEMP>100.4 06/28/25 12:45 06/28/25 12:46 Cancel Acetaminophen (Ofirmev) 1,000 mg Q8HPRN PRN IV PAIN SCALE 1-3 OR TEMP>100.4 06/28/25 13:00 06/28/25 13:10 Cefazolin Sodium 50 ml @ 100 mls/hr Q8H IV 06/28/25 16:00 06/29/25 08:29 06/29/25 00:23 Ketorolac Tromethamine (Toradol Injection) 30 mg Q6HPRN PRN IV MODERATE PAIN (4-6 PAIN SCALE) 06/28/25 22:00 07/03/25 21:59 06/28/25 22:15 Lactated Ringer's 1,000 ml @ 125 mls/hr Q8H IV 06/28/25 07:45 Morphine Sulfate 2 mg Q4HP PRN IV SEVERE PAIN (7-10 PAIN SCALE) 06/28/25 07:45 Ondansetron HCl (Zofran) 4 mg Q4HP PRN IV NAUSEA / VOMITING 06/28/25 09:45 Oxytocin 1,000 ml @ 150 mls/hr Q6H40M IV 06/28/25 07:45 General: Normal ENT: Normal Neck: Normal Lungs: Normal Cardiovascular: Normal Abdominal: Normal (Wound clean dry intact), Other (Gravid jeannette's 8+ lb) Musculoskeletal: Normal Extremities: Normal Skin: Normal Neurological: Normal Studies Laboratory Tests 06/26/25 22:14 Test 06/26/25 22:14 Range/Units Serum Glucose 70 L 74-106 mg/dL Ass/Plan Assessment 39+ weeks, macrosomia, hypertension status post section secondary to failure to progress in her comorbidities. Plan Advanced care see orders KONG DAWN DO Jun 29, 2025 05:12
[2025-06-29 06:28] LABS: Hematocrit 21.6 % (36.0-46.0); Mean Corpuscular Volume 66.7 fL (80.0-100.0)
[2025-06-29 06:32] LABS: Mean Corpuscular Hemoglobin 20.9 pg (28.0-32.0); Nucleated Red Blood Cells % 0.1 %
[2025-06-29 07:07] LABS: Hemoglobin 6.8 g/dL (12.2-16.2)
[2025-06-29 08:47] LABS: Anisocytosis Slight
[2025-06-29] MEDS ORDERED: BISACODYL 10 MG RECT SUPP PR PRN (12:30)
[2025-06-29] MEDS ORDERED: HYDROcodone-ACET 5/325MG TAB PO PRN (12:30)
[2025-06-29] MEDS: HYDROcodone-ACET 5/325MG TAB PO PRN (13:08)
[2025-06-29 13:19] LABS: Hemoglobin 7.2 g/dL (12.2-16.2)
[2025-06-29 13:21] LABS: Hematocrit 24.1 % (36.0-46.0); Mean Corpuscular Hemoglobin 21.3 pg (28.0-32.0); Mean Corpuscular Volume 70.6 fL (80.0-100.0); Nucleated Red Blood Cells % 0.0 %
[2025-06-29] MEDS: ceFAZolin 1GM/50ML 50 ML IV ONE (13:32)
[2025-06-29] MEDS: LACT. RINGERS/OXYTOCIN 20UNITS 500 ML IV ONE (15:19)
[2025-06-29] MEDS: IBUPROFEN 800 MG TAB PO PRN (16:57)
[2025-06-29] MEDS: DOCUSATE SOD 100 MG CAP PO SCH (22:00)
[2025-06-29] MEDS: SIMETHICONE 80 MG CHEWABLE TABLET PO SCH (22:00)
[2025-06-29 22:22] LABS: Hematocrit 24.1 % (36.0-46.0); Hemoglobin 7.5 g/dL (12.2-16.2); Mean Corpuscular Hemoglobin 21.3 pg (28.0-32.0); Mean Corpuscular Volume 68.2 fL (80.0-100.0); Nucleated Red Blood Cells % 0.2 %
[2025-06-30 03:02] VITALS: BP 115/74; PULSE 107; RESP 18; TEMP 98.6; O2SAT 98
--- NOTE | 2025-06-30 05:43 | DVHDS2 ---
Discharge Summary Date of Admission Jun 26, 2025 at 20:55 Date of Discharge: Jun 30, 2025 Admitting Diagnosis Postop day 2 section stable improved requesting discharge home. Wounds: Clean dry intact Labs/Diagnostic Data: Laboratory Results Test 06/29/25 21:58 06/29/25 05:29 06/26/25 22:14 06/26/25 21:30 White Blood Count 14.7 10^3/uL (4.4-10.8) Red Blood Count 3.53 10^6/uL (4.0-5.20) Hemoglobin 7.5 g/dL (12.2-16.2) Hematocrit 24.1 % (36.0-46.0) Mean Corpuscular Volume 68.2 fL (80.0-100.0) Mean Corpuscular Hemoglobin 21.3 pg (28.0-32.0) Mean Corpuscular Hemoglobin Concent 31.2 g/dL (32.0-36.0) Red Cell Distribution Width 18.0 % (11.8-14.3) Platelet Count 302 10^3/uL (140-450) Mean Platelet Volume 7.6 fL (6.9-10.8) Neutrophils (%) (Auto) 64.8 % (37.0-80.0) Lymphocytes (%) (Auto) 25.9 % (10.0-50.0) Monocytes (%) (Auto) 7.9 % (0.0-12.0) Eosinophils (%) (Auto) 1.0 % (0.0-7.0) Basophils (%) (Auto) 0.4 % (0.0-2.0) Neutrophils # (Auto) 9.6 10 ^3/uL (1.6-8.6) Lymphocytes # (Auto) 3.8 10 ^3/uL (0.4-5.4) Monocytes # (Auto) 1.2 10 ^3/uL (0-1.3) Eosinophils # (Auto) 0.1 10 ^3/uL (0-0.8) Basophils # (Auto) 0.1 10 ^3/uL (0-0.2) Nucleated Red Blood Cells 0.2 % Platelet Estimate Adequate Hypochromasia (manual) Slight Anisocytosis (manual) Slight Microcytosis Marked Prothrombin Time 9.8 sec (9.3-11.8) Prothrombin Time INR 0.92 (0.9-1.15) Activated Partial Thromboplast Time 27.3 SEC (24.5-34.5) Sodium Level 140 mmol/L (136-145) Potassium Level 3.5 mmol/L (3.5-5.1) Chloride Level 107 mmol/L (98-107) Carbon Dioxide Level 22 mmol/L (20-31) Anion Gap 11 (5-15) Blood Urea Nitrogen 8 mg/dL (9-23) Creatinine 0.60 mg/dL (0.550-1.02) Glomerular Filtration Rate Calc 132 mL/min (>90) BUN/Creatinine Ratio 13.3 (10.0-20.0) Serum Glucose 70 mg/dL (74-106) Uric Acid 3.0 mg/dL (3.1-7.8) Calcium Level 8.7 mg/dL (8.7-10.4) Total Bilirubin 0.2 mg/dL (0.2-1.0) Aspartate Amino Transferase (AST) 14 U/L (13-40) Alanine Aminotransferase (ALT) 13 U/L (7-40) Alkaline Phosphatase 181 U/L (46-116) Total Protein 6.6 g/dL (5.7-8.2) Albumin 3.7 g/dL (3.2-4.8) Treponema pallidum Antibody Non-reactive (Negative) Hepatitis C Antibody Negative (Negative) HIV (1&2) Antibody Negative (Negative) Urine Color Colorless (Yellow) Urine Clarity Turbid (Clear) Urine pH 6.0 (5.0-9.0) Urine Specific [place] 1.009 (1.001-1.035) Urine Protein Negative (Negative) Urine Ketones Negative (Negative) Urine Blood Negative /uL (Negative) Urine Nitrite Negative (Negative) Urine Bilirubin Negative (Negative) Urine Urobilinogen Normal mg/dL (Negative) Urine Leukocyte Esterase 3+ /uL (Negative) Urine RBC 6 /hpf (0 - 4) Urine Microscopic WBC 51 /HPF (0-5) Urine Squamous Epithelial Cells Few /hpf (<5) Urine Bacteria Few /hpf (None Seen) Urine Creatinine 44.04 mg/dL (30.0-125.0) Urine Protein/Creatinine Ratio 0.23 Urine Glucose 2+ mg/dL (Normal) Urine Total Protein 10.0 mg/dL (1-14) Urine Opiates Screen Neg (NEGATIVE) Urine Fentanyl Screen Neg (NEGATIVE) Urine Barbiturates Screen Neg (NEGATIVE) Urine Phencyclidine Screen Neg (NEGATIVE) Urine Amphetamines Screen Neg (NEGATIVE) Urine Benzodiazepines Screen Neg (NEGATIVE) Urine Cocaine Screen Neg (NEGATIVE) Urine Cannabinoids Screen Neg (NEGATIVE) Other Laboratory Tests 06/29/25 21:58 06/26/25 22:14 Brief Hx & Hospital Course: Patient admitted had nonreassuring heart tones went to -section 1 cm in labor delivered without issues stable for discharge postop day 2 Consults/Reason for consult None Operations or Procedures Low transverse Condition at Discharge: Good Final Diagnosis/Problems List 39+ weeks for to progress gestational hypertension macrosomia Discharge Disposition: Home Discharge Instruct/Medications Diet: Regular Activity: Light activity Activity comment: Pelvic rest 6 weeks Medications: Dr. Santana will Escribe her prescription to her pharmacy on my behalf Scheduled Miconazole Nitrate Vaginal (Monistat 7 Simply Cure), 2 % VA HS Vit W/ Ferrous Fumara ( One Daily), 1 TAB PO DAILY, (Reported) Discharge Statement: "Patient was advised to return to the ER or call 911 if any headaches, dizziness, shortness of breath, chest pain, abdominal pain, bleeding, fevers, or worsening of medical condition. Patient was counseled about treatment plan, medications, possible side effects, patientverbalized understanding. All questions were answered to the best of my ability. This discharge took greater then 30 minutes in planning, reviewing documentation, counseling the patient, and discussing with other team members." ASSESSMENT ASSESSMENT Assessment 39+ weeks for to progress gestational hypertension macrosomia Visit Coding OBGYN Date of Service: Jun 30, 2025 Billing Provider: KONG DAWN DO PAINTING TECHNICIAN Common Visit Codes: 31563-PLN/OBS SAME DATE (HIGH) PAINTING TECHNICIAN Procedure Codes: 78667-KEACE OB CARE, DEL KONG DAWN DO Jun 30, 2025 05:42
[2025-06-30 07:15] VITALS: BP 128/66; PULSE 93; RESP 16; TEMP 98.8; O2SAT 97
[2025-06-30] MEDS ORDERED: HYDR-4902 PO (07:50)
[2025-06-30] MEDS ORDERED: FER325T PO (07:50)
[2025-06-30] MEDS ORDERED: PREN-96 PO (07:50)
[2025-06-30] MEDS ORDERED: IBUP-1455 PO (07:50)
[2025-06-30] MEDS ORDERED: ASCO500T11 PO (07:50)
[2025-06-30] MEDS ORDERED: DOCU-265 PO (07:50)
[2025-06-30 11:00] VITALS: BP 127/62; PULSE 89; RESP 16; TEMP 98.6; O2SAT 98
== END 2025-06-30 12:00 | disposition home or self-care (01) | DRG 788 ==
LOC: LDRP 20:55
PROVIDERS: ADMIT Obstetrics & Gynecology; ATTEND Obstetrics & Gynecology
PROC: 10D00Z1 Extraction of Products of Conception, Low, Open Approach (ICD-10-PCS; principal; 2025-06-28 08:31)
DX: O13.4 Gestational [pregnancy-induced] hypertension without significant proteinuria, complicating childbirth (principal); O61.9 Failed induction of labor, unspecified; O36.63X0 Maternal care for excessive fetal growth, third trimester, not applicable or unspecified; Z37.0 Single live birth; Z3A.39 39 weeks gestation of pregnancy; O62.2 Other uterine inertia; O76 Abnormality in fetal heart rate and rhythm complicating labor and delivery
CPT/HCPCS: 36415; 59025; 80053; 80307; 81001; 81002; 82570; 84156; 84550; 85025; 85610; 85730; 86703; 86780; 86803; 86850; 86900; 86901; 94760; 94762; 96360; 96361; 96365; 96366; 96374; G0378; J0131; J0690; J1100; J1885; J2405; J2590